=== PATIENT | female | born 1995 | race Asian ===

== ENCOUNTER 2017-07-03 22:17 | Observation (INO) | payer SELFPAY ==
[~2017-07-03] VITALS: Ht 160 cm; Wt 47.1 kg
[2017-07-03] MEDS ORDERED: SODIUM CHLORIDE 0.9% 1000ML 1,000 ML IV STA (22:51)
[2017-07-03 23:13] LABS: BASO % 0.1 %; BASO ABS # 0.01 K/uL (0-0.2); HEMATOCRIT 42.2 % (37-47); HEMOGLOBIN 14.5 g/dL (12.0-16.0); IG# 0.06 K/uL (0.00-0.02); LYMPH % 5.9 %; LYMPH ABS # 0.59 K/uL (1.2-3.4); MEAN CELL VOLUME 91.1 fL (80-100); MEAN CORPUSCULAR HEMOGLOBIN 31.3 pg (25-34); MEAN CORPUSCULAR HGB CONC 34.4 g/dl (32-36); MEAN PLATELET VOLUME 9.2 fL (7.4-10.4); MONO % 2.1 %; MONO ABS # 0.21 K/uL (0.11-0.59); NEUT % 91.3 %; NEUT ABS # 9.18 K/uL (1.4-6.5); PLATELET COUNT 270 K/uL (130-400); RED CELL DISTRIBUTION WIDTH CV 12.2 % (11.5-14.5); RED CELL DISTRIBUTION WIDTH SD 40.8 fL (36.4-46.3); WHITE BLOOD COUNT 10.05 K/uL (4.8-10.8)
[2017-07-03 23:25] LABS: PTT PATIENT 25.5 SECONDS (21.0-31.0)
[2017-07-03 23:52] LABS: ALBUMIN 4.3 gm/dl (3.4-5.0); CREATININE 1.13 mg/dl (0.60-1.20); POTASSIUM 3.9 mmol/L (3.5-5.1)
[2017-07-04] VITALS (9 sets, daily range): BP systolic 94–139; BP diastolic 59–94; PULSE 76–118; TEMP 36.8–37.2; O2SAT 93–99; Ht 160 cm; Wt 47.1 kg
[2017-07-04] MEDS ORDERED: SODIUM CHLORIDE 0.9% 1000ML 1,000 ML IV STA (00:02)
[2017-07-04 00:03] LABS: TOTAL PROTEIN 7.9 gm/dl (6.4-8.2)
[2017-07-04] MEDS ORDERED: SERT1TAB72 PO ×2 (00:56)
[2017-07-04] MEDS ORDERED: DROS1TAB24 PO (00:56)
--- NOTE | 2017-07-04 01:09 | EMERGENCY ROOM VISIT NOTE ---
History Report prepared by Kaycee: Jhony Britton Under the Supervision of: Dr. Jacky Rudolph M.D. First contact with patient: 22:25 Chief Complaint: OVERDOSE (INTENTIONAL) Stated Complaint: OVERDOSE History of Present Illness The patient is a 21 year old female who presents to the Emergency Room with complaints of intentional overdose occurring around 1800 tonight. The patient states that she took 30 25mg tablets of [employer] brand Sleep-Aid, and afterwards she vomited. She states that she did it because she was sad, and she just wanted to sleep, though she states that she was not trying to hurt herself. She states that she was sad about "the Instagram pictures of Radha Donis with her arms so buff". The patient states that she did not take any other medications, and she did not use any alcohol or other drugs. She has a history of depression, and she has been on Zoloft for the past month, and before that she used to take Prozac. She has never tried to hurt herself like this before, and she states that she sees a therapist and psychiatrist. The patient denies any other medical problems. The patient denies any headache, chest pain, shortness of breath, nausea, and palpitations, and she just states that her mouth is dry. She denies any chance of . History is limited secondary to poor cooperation. According to the police the patient told him that she took the pills because she was "suicidal." Source of History: patient History Limited By: poor cooperation Onset: 1800 Position: other (global) Quality: other (overdose) Timing: other (sudden) Review of Systems HPI is limited secondary to poor cooperation Past Medical & Surgical Medical Problems: (1) Depression Social History Marital Status: single Occupation Status: [employer] student Current/Historical Medications Scheduled Drospirenone-Ethinyl Estradiol (Patti), 1 TAB PO DAILY Sertraline Hcl (Zoloft), 25 MG PO DAILY Allergies Coded Allergies: No Known Allergies (Unverified , 07/04/17) Physical Exam Vital Signs Date Time Temp Pulse Resp B/P (MAP) Pulse Ox O2 Delivery O2 Flow Rate FiO2 07/04/17 00:46 125 16 128/89 100 Room Air 07/03/17 23:54 130 16 114/79 96 Room Air 07/03/17 23:20 122 16 133/97 97 Room Air 07/03/17 22:51 137 17 98 Room Air 07/03/17 22:31 146 07/03/17 22:29 98 Room Air 07/03/17 22:27 37.1 152 133/84 98 Room Air Physical Exam Constitutional: Vital signs reviewed. Eyes: Pupils are equal round reactive to light. Conjunctiva are noninjected. ENT: Pharynx is clear without erythema or exudate. Mucous membranes are dry. Neck supple without meningeal signs. Respiratory: Clear to auscultation bilaterally. Breath sounds are equal bilaterally. Cardiovascular: Tachycardic rate at 147 and normal rhythm. No rubs or gallops. GI: Soft, nondistended and nontender. Bowel sounds are present. Musculoskeletal: No lacerations to the wrists. No peripheral edema. Integumentary: No cyanosis. Neurological: The patient is awake and alert. No focal deficits. Psychiatric: Flat affect and uncooperative. Medical Decision & Procedures Laboratory Results 07/03/17 16:02 Red Blood Count 4.63, Mean Corpuscular Volume 91.1, Mean Corpuscular Hemoglobin 31.3, Mean Corpuscular Hemoglobin Concent 34.4, Mean Platelet Volume 9.2, Neutrophils (%) (Auto) 91.3, Lymphocytes (%) (Auto) 5.9, Monocytes (%) (Auto) 2.1, Eosinophils (%) (Auto) 0.0, Basophils (%) (Auto) 0.1, Neutrophils # (Auto) 9.18, Lymphocytes # (Auto) 0.59, Monocytes # (Auto) 0.21, Eosinophils # (Auto) 0.00, Basophils # (Auto) 0.01 07/03/17 22:50 Test 07/03/17 16:02 07/03/17 22:50 07/03/17 23:45 White Blood Count 10.05 K/uL (4.8-10.8) Red Blood Count 4.63 M/uL (4.2-5.4) Hemoglobin 14.5 g/dL (12.0-16.0) Hematocrit 42.2 % (37-47) Mean Corpuscular Volume 91.1 fL (80-100) Mean Corpuscular Hemoglobin 31.3 pg (25-34) Mean Corpuscular Hemoglobin Concent 34.4 g/dl (32-36) Platelet Count 270 K/uL (130-400) Mean Platelet Volume 9.2 fL (7.4-10.4) Neutrophils (%) (Auto) 91.3 % Lymphocytes (%) (Auto) 5.9 % Monocytes (%) (Auto) 2.1 % Eosinophils (%) (Auto) 0.0 % Basophils (%) (Auto) 0.1 % Neutrophils # (Auto) 9.18 K/uL (1.4-6.5) Lymphocytes # (Auto) 0.59 K/uL (1.2-3.4) Monocytes # (Auto) 0.21 K/uL (0.11-0.59) Eosinophils # (Auto) 0.00 K/uL (0-0.5) Basophils # (Auto) 0.01 K/uL (0-0.2) RDW Standard Deviation 40.8 fL (36.4-46.3) RDW Coefficient of Variation 12.2 % (11.5-14.5) Immature Granulocyte % (Auto) 0.6 % Immature Granulocyte # (Auto) 0.06 K/uL (0.00-0.02) Prothrombin Time 10.3 SECONDS (9.0-12.0) Prothromb Time International Ratio 1.0 (0.9-1.1) Activated Partial Thromboplast Time 25.5 SECONDS (21.0-31.0) Partial Thromboplastin Ratio 1.0 Anion Gap 13.0 mmol/L (3-11) Est Creatinine Clear Calc Drug Dose 58.1 ml/min Estimated GFR () 81.6 Estimated GFR (Non- 70.4 BUN/Creatinine Ratio 6.7 (10-20) Calcium Level 8.0 mg/dl (8.5-10.1) Total Bilirubin 0.5 mg/dl (0.2-1) Direct Bilirubin 0.1 mg/dl (0-0.2) Aspartate Amino Transf (AST/SGOT) 11 U/L (15-37) Alanine Aminotransferase (ALT/SGPT) 14 U/L (12-78) Alkaline Phosphatase 65 U/L (45-117) Total Protein 7.9 gm/dl (6.4-8.2) Albumin 4.3 gm/dl (3.4-5.0) Thyroid Stimulating Hormone (TSH) 2.550 uIu/ml (0.300-4.500) Free Thyroxine 1.20 ng/dl (0.80-1.60) Human Chorionic Gonadotropin, Qual NEG (NEG) Salicylates Level < 1.7 mg/dl (2.8-20) Acetaminophen Level < 2 ug/ml (10-30) Ethyl Alcohol mg/dL < 3.0 mg/dl (0-3) Urine Color YELLOW Urine Appearance TURBID (CLEAR) Urine pH 8.0 (4.5-7.5) Urine Specific [place] 1.018 (1.000-1.030) Urine Protein NEG (NEG) Urine Glucose (UA) NEG (NEG) Urine Ketones 1+ (NEG) Urine Occult Blood 1+ (NEG) Urine Nitrite NEG (NEG) Urine Bilirubin NEG (NEG) Urine Urobilinogen NEG (NEG) Urine Leukocyte Esterase SMALL (NEG) Urine WBC (Auto) 5-10 /hpf (0-5) Urine RBC (Auto) 0-4 /hpf (0-4) Urine Hyaline Casts (Auto) 1-5 /lpf (0-5) Urine Epithelial Cells (Auto) >30 /lpf (0-5) Urine Bacteria (Auto) NEG (NEG) Urine Yeast (Auto) (NONE PRSENT) Urine Test NEG (NEG) Urine Opiates Screen NEG (NEG) Urine Methadone, Qualitative NEG (NEG) Urine Barbiturates NEG (NEG) Urine Phencyclidine (PCP) Level NEG (NEG) Ur Amphetamine/Methamphetamine NEG (NEG) MDMA (Ecstasy) Screen NEG (NEG) Urine Benzodiazepines Screen NEG (NEG) Urine Cocaine Metabolite NEG (NEG) Urine Marijuana (THC) NEG (NEG) Laboratory results as reviewed by me. Medications Administered Medications (Trade) Dose Ordered Sig/Ge Route Start Time Stop Time Status Last Admin Dose Admin Sodium Chloride 1,000 ml @ 999 mls/hr Q1H1M STAT IV 07/03/17 22:51 07/03/17 23:51 DC 07/03/17 22:51 999 MLS/HR Sodium Chloride 1,000 ml @ 999 mls/hr Q1H1M STAT IV 07/04/17 00:02 07/04/17 01:02 07/04/17 00:02 999 MLS/HR ECG Per My Interpretation Indication: other (overdose) Rate (beats per minute): 132 Rhythm: sinus tachycardia Findings: no ectopy, other (QRS is 70ms. R [place] is 85) Change: REPEAT EKG: Sinus Tachycardia at 127bpm. QRS is 66ms. No ectopy. ED Course 5: The patient was evaluated in room A10. A complete history and physical exam was performed. 2250: I talked with Poison Control, and they recommended symptomatic care and watch for sedation and tachycardia. They also recommended IV fluids. 2251: Sodium Chloride 1000 ml @ 999 mls/hr IV 2353: I reevaluated the patient, and she was still tachycardic with a heart rate of 130 and light headed. 0002: Sodium Chloride 1000 ml @ 999 mls/hr IV 0003: I reassessed her, and she was still tachycardic. She answers questions appropriately, but she has some hesitancy. I discussed the patient's case with Dr. Bang - [facility], and he is going to evaluate the patient for further management. 0010: I Reevaluated the patient, and she was alert and oriented x4. I discussed plans for admission for her. Medical Decision This is a 21-year-old female who presents with intentional drug overdose and tachycardia. Differential diagnosis includes suicide attempt, mood disorder, anticholinergic toxidrome, electrolyte abnormality, polysubstance overdose. I did perform a limited focused review of portions of the patient's old chart on the electronic medical record. The patient has had no prior visits. I did evaluate the patient as noted above. I did obtain history from the patient. She is not fully cooperative and gives glib answers. She does not appear confused. She did take 25 mg tablets 30 of [employer] brand Sleep-Aid which has diphenhydramine. According to the juvenile justice officer who filled out at [phone] petition the patient told her that she was suicidal. IV access was established. The patient was placed on a continuous vehicle monitor technician. I did order and personally review the patient's 12-lead EKG and chest x-ray as described above. The patient is very tachycardic. She does not have any widening of her QRS. I did order and review the patient's blood work as noted in the electronic medical record. Urine drug screen is negative. UA is equivocal. A urine culture was sent. I did reassess the patient several times. She remains tachycardic. She remains alert and oriented 4. I did discuss case with the Poison Control Center. The patient was given 2 L of normal saline IV. Her heart rate did improve somewhat. I did recommend hospitalization for medical clearance and then psychiatric evaluation. I did discuss case with the hospitalist and protective services case worker. Medication Reconcilliation Current Medication List: was personally reviewed by me Blood Pressure Screening Patient's blood pressure: Elevated blood pressure Blood pressure disposition: Elevated BP felt to be situational Consults Time Called: 0002 Consulting Physician: Dr. Bang Returned Call: 0003 I discussed the patient's case with Dr. Bang - [facility], and he is going to evaluate the patient for further management. Impression Primary Impression: Intentional drug overdose Additional Impression: Suicide attempt Scribe Attestation The scribe's documentation has been prepared under my direct and personally reviewed by me in its entirety. I confirm that the note above accurately reflects all work, treatment, procedures, and medical decision making performed by me. Departure Information Dispostion Being Evaluated By Hospitalist Referrals No Doctor, Assigned (PCP) Patient Instructions My [facility] Problem Qualifiers Primary Impression: Intentional drug overdose Encounter type: initial encounter Qualified Codes: T50.902A - Poisoning by unspecified drugs, medicaments and biological substances, intentional self-harm , initial encounter
[2017-07-04] MEDS ORDERED: ONDANSETRON INJ 2 MG/ML 2 ML VIAL IV PRN (02:15)
[2017-07-04] MEDS ORDERED: ACETAMINOPHEN 325 MG TAB PO PRN (02:15)
--- NOTE | 2017-07-04 02:25 | History and Physical ---
History & Physical Date & Time of Service: Jul 04, 2017 at 02:14 Chief Complaint: Overdose Primary Care Physician: No Doctor, Assigned History of Present Illness Source: patient Patient is a 21 year old female with a history of depression that presents with AMS. The patient took 25-30 benadryl this evening and is unable to provide an accurate description of events or reason behind taking the pills. She states that she felt like she wanted to go to sleep so took the benadryl. She denies any suicidal ideations or attempt to cause hard to herself. The patient does not have clear thoughts at this time and cannot follow a train of thought. She denies any chest pain, headache, shortness of breath, abdominal pain, nausea, vomiting, fever, chills, sweats, or any other acute complaints. Family History Noncontributory Social History Smoking Status: Never Smoker Smokeless Tobacco Use: No Alcohol Use: none Drug Use: none Marital Status: single Occupational Status: [employer] student Immunizations History of Influenza Vaccine: Unknown History of Tetanus Vaccine?: Unknown History of Pneumococcal: Unknown History of Hepatitis B Vaccine: Unknown Multi-Drug Resistant Organisms History of MDRO: No Allergies Coded Allergies: No Known Allergies (Unverified , 07/04/17) Home Medications Scheduled Drospirenone-Ethinyl Estradiol (Patti), 1 TAB PO DAILY Sertraline Hcl (Zoloft), 25 MG PO DAILY Review of Systems Constitutional: No fever, No chills, No sweats, No fatigue Respiratory: No cough, No wheezing, No shortness of breath Cardiovascular: No chest pain, No palpitations Abdomen: No pain, No nausea, No vomiting, No diarrhea, No constipation Neurologic: No weakness, No numbness/tingling, No vertigo Psychiatric: No depression symptoms, No anxiety, No substance abuse Physical Exam Vital Signs Date Time Temp Pulse Resp B/P (MAP) Pulse Ox O2 Delivery O2 Flow Rate FiO2 07/04/17 02:03 87 20 133/69 07/04/17 02:03 115 07/04/17 01:07 112 16 140/90 96 Room Air 07/04/17 00:46 125 16 128/89 100 Room Air 07/03/17 23:54 130 16 114/79 96 Room Air 07/03/17 23:20 122 16 133/97 97 Room Air 07/03/17 22:51 137 17 98 Room Air 07/03/17 22:31 146 07/03/17 22:29 98 Room Air 07/03/17 22:27 37.1 152 133/84 98 Room Air General Appearance: WD/WN, + pertinent finding (fatigued and having staring spells) Head: normocephalic, atraumatic Respiratory/Chest: chest non-tender, lungs clear, normal breath sounds Cardiovascular: regular rate, rhythm, no edema, no gallop Abdomen/GI: normal bowel sounds, non tender, soft Extremities/Musculoskelatal: no calf tenderness, no pedal edema Neurologic/Psych: alert, oriented x 3 Diagnostics Laboratory Results Results Past 24 Hours Test 07/03/17 16:02 07/03/17 22:50 07/03/17 23:45 Range/Units White Blood Count 10.05 4.8-10.8 K/uL Red Blood Count 4.63 4.2-5.4 M/uL Hemoglobin 14.5 12.0-16.0 g/dL Hematocrit 42.2 37-47 % Mean Corpuscular Volume 91.1 80-100 fL Mean Corpuscular Hemoglobin 31.3 25-34 pg Mean Corpuscular Hemoglobin Concent 34.4 32-36 g/dl Platelet Count 270 130-400 K/uL Mean Platelet Volume 9.2 7.4-10.4 fL Neutrophils (%) (Auto) 91.3 % Lymphocytes (%) (Auto) 5.9 % Monocytes (%) (Auto) 2.1 % Eosinophils (%) (Auto) 0.0 % Basophils (%) (Auto) 0.1 % Neutrophils # (Auto) 9.18 1.4-6.5 K/uL Lymphocytes # (Auto) 0.59 1.2-3.4 K/uL Monocytes # (Auto) 0.21 0.11-0.59 K/uL Eosinophils # (Auto) 0.00 0-0.5 K/uL Basophils # (Auto) 0.01 0-0.2 K/uL RDW Standard Deviation 40.8 36.4-46.3 fL RDW Coefficient of Variation 12.2 11.5-14.5 % Immature Granulocyte % (Auto) 0.6 % Immature Granulocyte # (Auto) 0.06 0.00-0.02 K/uL Prothrombin Time 10.3 9.0-12.0 SECONDS Prothromb Time International Ratio 1.0 0.9-1.1 Activated Partial Thromboplast Time 25.5 21.0-31.0 SECONDS Partial Thromboplastin Ratio 1.0 Sodium Level 137 136-145 mmol/L Potassium Level 3.9 3.5-5.1 mmol/L Chloride Level 103 98-107 mmol/L Carbon Dioxide Level 22 21-32 mmol/L Anion Gap 13.0 3-11 mmol/L Blood Urea Nitrogen 8 7-18 mg/dl Creatinine 1.13 0.60-1.20 mg/dl Est Creatinine Clear Calc Drug Dose 58.1 ml/min Estimated GFR () 81.6 Estimated GFR (Non- 70.4 BUN/Creatinine Ratio 6.7 10-20 Random Glucose 113 70-99 mg/dl Calcium Level 8.0 8.5-10.1 mg/dl Total Bilirubin 0.5 0.2-1 mg/dl Direct Bilirubin 0.1 0-0.2 mg/dl Aspartate Amino Transf (AST/SGOT) 11 15-37 U/L Alanine Aminotransferase (ALT/SGPT) 14 12-78 U/L Alkaline Phosphatase 65 45-117 U/L Total Protein 7.9 6.4-8.2 gm/dl Albumin 4.3 3.4-5.0 gm/dl Thyroid Stimulating Hormone (TSH) 2.550 0.300-4.500 uIu/ml Free Thyroxine 1.20 0.80-1.60 ng/dl Human Chorionic Gonadotropin, Qual NEG NEG Salicylates Level < 1.7 2.8-20 mg/dl Acetaminophen Level < 2 10-30 ug/ml Ethyl Alcohol mg/dL < 3.0 0-3 mg/dl Urine Color YELLOW Urine Appearance TURBID CLEAR Urine pH 8.0 4.5-7.5 Urine Specific [place] 1.018 1.000-1.030 Urine Protein NEG NEG Urine Glucose (UA) NEG NEG Urine Ketones 1+ NEG Urine Occult Blood 1+ NEG Urine Nitrite NEG NEG Urine Bilirubin NEG NEG Urine Urobilinogen NEG NEG Urine Leukocyte Esterase SMALL NEG Urine WBC (Auto) 5-10 0-5 /hpf Urine RBC (Auto) 0-4 0-4 /hpf Urine Hyaline Casts (Auto) 1-5 0-5 /lpf Urine Epithelial Cells (Auto) >30 0-5 /lpf Urine Bacteria (Auto) NEG NEG Urine Yeast (Auto) NONE PRSENT Urine Test NEG NEG Urine Opiates Screen NEG NEG Urine Methadone, Qualitative NEG NEG Urine Barbiturates NEG NEG Urine Phencyclidine (PCP) Level NEG NEG Ur Amphetamine/Methamphetamine NEG NEG MDMA (Ecstasy) Screen NEG NEG Urine Benzodiazepines Screen NEG NEG Urine Cocaine Metabolite NEG NEG Urine Marijuana (THC) NEG NEG Microbiology Results 07/03/17 Urine Culture, Received Pending Impression Assessment and Plan Intentional Overdose - Patient took 25-30 Benadryl pills - QTc 444 - Admit to Telemetry - IV NS @ 150 mls/hr - Normal Diet - Psych Consult Depression - Hold Zoloft DVT - SCDs Code Status - Full Resuscitation Attending addendum: I have physically seen this patient, have supervised the medical residents activities, and agree with the H&P unless as otherwise noted. Assessment and Plan: Intentional drug overdose with Benadryl/depression/sinus tachycardia/dehydration -- Admit to the telemetry unit. Normal saline at 150 mils per hour. Continue Zoloft Consult psychiatry. Level of Care Telemetry Advanced Directives Existing Advance Directive: No Existing Living Will: No Existing Power of Floor Runner: No Resuscitation Status FULL RESUSCITATION VTE Prophylaxis VTE Risk Assessment Done? Y/N: Yes Risk Level: Low Given or contraindicated: SCD's Resident Tracking Resident Involvement: Resident Care Provided Care Provided: Adult Hospital Medicine
[2017-07-04] MEDS: SODIUM CHLORIDE 0.9% 1000ML 1,000 ML IV SCH ×4 (03:24→23:02)
[2017-07-04] MEDS ORDERED: IV FLUIDS COMPLETED PRN (04:15)
[2017-07-04] MEDS ORDERED: INFLUENZA ADMINISTRATION CHARGE ONE (05:15)
[2017-07-04] MEDS ORDERED: INFLUENZA VIRUS QUAD VACCINE 0.5 ML SYR IM. ONE (05:15)
[2017-07-04] MEDS: SERTRALINE HCL 50 MG TAB PO SCH (09:33)
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
[2017-07-05 05:10] VITALS: BP 98/65; PULSE 63; TEMP 36.6; O2SAT 99
[2017-07-05] MEDS: SODIUM CHLORIDE 0.9% 1000ML 1,000 ML IV SCH (05:37)
[2017-07-05 06:43] LABS: ALBUMIN 3.4 gm/dl (3.4-5.0); ALKALINE PHOSPHATASE 50 U/L (45-117); ALT/SGPT 13 U/L (12-78); AST/SGOT 15 U/L (15-37); BLOOD UREA NITROGEN 6 mg/dl (7-18); CALCIUM 8.3 mg/dl (8.5-10.1); CARBON DIOXIDE 26 mmol/L (21-32); CREATININE 0.67 mg/dl (0.60-1.20); GLUCOSE 79 mg/dl (70-99); POTASSIUM 3.9 mmol/L (3.5-5.1); SODIUM 139 mmol/L (136-145); TOTAL PROTEIN 6.3 gm/dl (6.4-8.2)
[2017-07-05 07:09] VITALS: BP 94/57; PULSE 68; TEMP 36.9; O2SAT 96
[2017-07-05] MEDS: SERTRALINE HCL 50 MG TAB PO SCH (08:11)
--- NOTE | 2017-07-05 11:00 | Discharge Instructions ---
Discharge Instructions Date of Service Jul 05, 2017. Admission Reason for Admission: Intentional Drug Overdose Discharge Discharge Diagnosis / Problem: depression and risk factors for suicide Discharge Goals Goal(s): Decrease discomfort, Improve function, Increase independence, Improve disease control, Improve nutritional status, Learn about illness, Diagnostic testing, Therapeutic intervention, Prevent Disease Progression, Specific goals Activity Recommendations Activity Limitations: resume your previous activity . Instructions / Follow-Up Instructions / Follow-Up you have depression you have overdose of Benadryl pills - you need to follow up with your primary care physician in 1 week, - take medication as instructed, never overdose or any misuse, or take with alcohol, because misuse of medicine may cause organ damage or , call your primary care physician if have questions of medicaitons. - call your primary care physician OR go to local emergency room if has any fever/chill, chest pain, shortness of breathing, nausea/vomiting/abdominal pain , facial droop/slurry speech/local weakness, or if has any questions. - fall precaution - diet as instructed, encourage oral intake, such as water and food, - you need to follow up with your subspecialist , such as psychiatry Current Hospital Diet Patient's current hospital diet: Regular Diet Discharge Diet Recommended Diet: Regular Diet Pending Studies Studies pending at discharge: no Medical Emergencies . Who to Call and When: Medical Emergencies: If at any time you feel your situation is an emergency, please call 911 immediately. . Non-Emergent Contact Non-Emergency issues call your: Primary Care Provider, Specialist (psychiatry) . . "Provider Documentation" section prepared by Yobani Lawrence. . VTE Core Measure Inpt VTE Proph given/why not?: SCD's
[2017-07-05 11:01] VITALS: BP 94/57; PULSE 68; TEMP 36.9; O2SAT 96
--- NOTE | 2017-07-05 14:59 | Discharge Summary ---
Discharge Summary Date of Service Jul 05, 2017. Discharge Summary Admission Date: Jul 04, 2017 at 02:14 Discharge Date: Jul 05, 2017 Discharge Disposition: Acute care mental health Principal Diagnosis: Depression with high risk of suicide Problems/Secondary Diagnoses: Intentional overdose with 25-30 Benadryl pills Immunizations: Have You Had Influenza Vaccine: Unknown History of Tetanus Vaccine?: Unknown History of Pneumococcal: Unknown History of Hepatitis B Vaccine: Unknown Procedures: No Consultations: Psychiatry Medication Reconciliation Continued Medications: Drospirenone-Ethinyl Estradiol (Patti) 1 Tab Tab 1 TAB PO DAILY for 28 Days, #28 TAB 11 Refills Sertraline Hcl (Zoloft) 25 Mg Tab 25 MG PO DAILY, TAB Discharge Exam Patient doing well, report has no appetite, eating poorly, Review of Systems: Constitutional: + fatigue, No fever, No chills, No sweats, No weight loss, No weakness, No problem reported Eyes: No worsening of vision, No eye pain, No redness, No discharge, No diplopia, No problem reported ENT: No hearing loss, No unusual epistaxis, No nasal symptoms, No sore throat, No tinnitus, No dental problems, No trouble swallowing, No problem reported Respiratory: No cough, No sputum, No wheezing, No shortness of breath, No dyspnea on exertion, No dyspnea at rest, No hemoptysis, No problem reported Cardiovascular: No chest pain, No orthopnea, No PND, No edema, No claudication, No palpitations, No problem reported Abdomen: No pain, No nausea, No vomiting, No diarrhea, No constipation, No GI bleeding, No problem reported Musculoskeletal: No joint pain, No muscle pain, No swelling, No calf pain, No problem reported Genitourinary - Female: No dysuria, No urinary frequency, No urinary urgency , No urinary incontinence, No urinary retention, No hematuria, No dysmenorrhea, No menorrhagia, No metrorrhagia, No rash, No vaginal bleeding, No vaginal discharge, No vaginal itching, No vulvodynia, No , No problem reported Neurologic: No memory loss, No paralysis, No weakness, No numbness/tingling , No vertigo, No balance problems, No problem reported Psychiatric: No depression symptoms Endocrine: No fatigue, No excessive thirst, No excessive urination, No problem reported Integumentary: No rash, No itch, No new/changing skin lesions, No color change, No bleeding, No problem reported Physical Exam: General Appearance: WD/WN, no apparent distress, + thin, + pertinent finding (Smiling during a conversation) Eyes: normal inspection, PERRL, EOMI ENT: normal ENT inspection, hearing grossly normal, TMs normal, pharynx normal Neck: supple, no adenopathy, thyroid normal, no JVD Respiratory/Chest: chest non-tender, lungs clear, normal breath sounds, no respiratory distress, no accessory muscle use Cardiovascular: regular rate, rhythm, no edema, no gallop, no JVD, no murmur Abdomen / GI: normal bowel sounds, non tender, soft, no organomegaly, no pulsatile mass Extremities: normal inspection, no calf tenderness, normal capillary refill , no pedal edema 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 Report history of 201 voluntary admission several years ago, denies any suicidal ideations or attempt to cause hard to herself. Intentional overdose with 25-30 Benadryl pills, possible suicidal attempt with hx of depression 201 voluntary admission, has been on IV fluids because poor oral intake, behavior health saw her, today patient is medically cleared, her lab is stable, no obvious problem in the kidney, liver, and heart , injuries Depression, generalized anxiety: Continue Zoloft 25 mg daily ... Psychiatry evaluation patient again, recommend 2011 inpatient psych treatment, I agreed Instructions / Follow-Up you have depression you have overdose of Benadryl pills - you need to follow up with your primary care physician in 1 week, - take medication as instructed, never overdose or any misuse, or take with alcohol, because misuse of medicine may cause organ damage or , call your primary care physician if have questions of medicaitons. - call your primary care physician OR go to local emergency room if has any fever/chill, chest pain, shortness of breathing, nausea/vomiting/abdominal pain , facial droop/slurry speech/local weakness, or if has any questions. - fall precaution - diet as instructed, encourage oral intake, such as water and food, - you need to follow up with your subspecialist , such as psychiatry Total Time Spent: Greater than 30 minutes This includes examination of the patient, discharge planning, medication reconciliation, and communication with other providers. Discharge Instructions Please refer to the electronic Patient Visit Report (Discharge Instructions) for additional information. Additional Copies To Jackelyn Gaffney MD; [facility]
== END 2017-07-05 11:07 ==
LOC: C.EDA 22:19 → C.MED 07-04 02:14 → ENRESERV 07-04 02:31
PROVIDERS: ADMIT Student in an Organized Health Care Education/Training Program; ATTEND Hospitalist
DX: T45.0X2A Poisoning by antiallergic and antiemetic drugs, intentional self-harm, initial encounter (principal); F32.9 Major depressive disorder, single episode, unspecified; Z79.3 Long term (current) use of hormonal contraceptives

== ENCOUNTER 2017-07-05 10:58 | Inpatient (IN) | payer SELFPAY ==
[~2017-07-05] VITALS: Ht 157.5 cm; Wt 47.1 kg
[~2017-07-05 10:58] MED LIST: DROS1TAB24 PO; SERT1TAB72 PO
[2017-07-05] MEDS ORDERED: hydrOXYzine HCL 25 MG TAB PO PRN ×2 (11:15)
[2017-07-05] MEDS ORDERED: ACETAMINOPHEN 325 MG TAB PO PRN (11:15)
[2017-07-05] MEDS ORDERED: MAGNESIUM HYDROXIDE SUSP 30 ML UDC PO PRN (11:15)
[2017-07-05] MEDS ORDERED: SODIUM CHLORIDE 0.65% NA SOLN 45 ML (OCEAN) PRN (11:15)
[2017-07-05] MEDS ORDERED: ALUMINUM/MAGNESIUM SUSP 30 ML UDC PO PRN (11:15)
[2017-07-05] MEDS ORDERED: BISMUTH SUBSALICYLATE PER ML OMNICELL CHARGE PO PRN (11:15)
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
[2017-07-05] MEDS ORDERED: SERTRALINE HCL 50 MG TAB PO ONE (12:00)
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
[2017-07-05 12:29] VITALS: BP 108/76; PULSE 92; TEMP 36.9; Ht 157.5 cm; Wt 47.1 kg
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
[2017-07-06 06:31] VITALS: BP_SYST 100; BP_SYST 99; BP_DIAS 65; BP_DIAS 68; PULSE 73; PULSE 87; TEMP 36.6
[2017-07-06] MEDS ORDERED: SERTRALINE HCL 50 MG TAB PO SCH (09:00)
[2017-07-06] MEDS: SERTRALINE HCL 50 MG TAB PO SCH (09:09)
--- NOTE | 2017-07-06 11:51 | Psychiatric Progress Notes ---
Progress Note Date of Service Jul 06, 2017. Interval History Jackelyn Torres is a 21-year-old female [facility] student from [place] who has a history of depression who was admitted to our unit on Jul 05, 2017 at 10:58 for depression and an intentional overdose. She initially presented to the emergency room 07/03/2017 with police after they responded to a safety check, found her altered, and she admitted to overdosing on 30 tablets of over-the- counter sleep medication. She was initially admitted to the hospitalist service , receive supportive treatment, and today was medically cleared and admitted to the behavioral health unit voluntarily. Chief Complaint "Better since I talked to my friend ". Subjective Patient was seen & assessed interval progress reviewed with Treatment Team. Staff report her father visited from [place] last evening. A phone meeting is scheduled for today, as he had to return home. She has spent free time in her room yesterday, but today has started to attend groups. She talked about the changes in her life after the accident that killed her mother, and believes her psychiatric issues started then. She also talked about her long distance relationship with her boyfriend, and is hoping that it will continue. She has been on the phone throughout group therapy. On my assessment, the patient states that her mood has improved since talking to her best friend on the phone this morning. She states that her friend told her that she and the patient's boyfriend were very concerned about her, as she told them that she had taken the overdose, and then stopped responding to their text messages. They feared that she was , so called the police. She states that it was reassuring to her to know that her friend and boyfriend care about her so much. She talked more about the precipitant to her overdose, which was an argument with her boyfriend. She says the argument was "just a regular argument, nothing abnormal ," but afterwards she "was overthinking it, thinking that he doesn't care, doesn 't like me." She notes that this is a pattern for her, and that she does not do well when she has disagreements with others. She denies suicidal thoughts today, but states that she expects they will return again in the future. She thinks that she will not be as likely to act on them, as "now I know my boyfriend and friend really care." She has only attended 1 group since admission, community meeting this morning, and says it was "kind of" helpful. Discussed the concept of safety planning, and encouraged the patient to start working on this, as she continues to hope for rapid discharge. She has a meeting with her father this afternoon by phone, and states he is planning to return to [facility] when she is discharged. Sleep Information Total Hours of Sleep: 6.00 Meal Information Percent of Lunch Consumed: 100 Percent of Dinner Consumed: 100 Mental Status Exam During interview pt is: alert and oriented, cooperative Appearance: appropriately dressed, appropriately groomed, other (facial scarring) Eye contact is: good Motor behavior is: steady gait & station, no abnormal motor movements Speech: normal in rate, rhythm & volume (more productive than previously) Affect: mood congruent, depressed, constricted Mood is: other ("better") Thought process: goal directed Thought content: reality based without delusions Suicidal thought are: denied (but admits to intentional overdose prior to admission) Homicidal thoughts are: denied Hallucinations: denies auditory, denies visual Cognition: memory grossly intact, attention grossly intact, language grossly intact Intelligence estimated to be: average Insight: impaired Judgement: impaired Impression 21 y/o single female [employer] student from [place] who has a history of depression and anxiety and is admitted voluntarily after an intentional overdose on OTC sleep meds (possibly diphenhydramine), which she initially told police was a suicide attempt, but later said was an attempt to sleep. This was triggered by an argument with her boyfriend, the details of which she has been somewhat reluctant to discuss. Her boyfriend and best friend had been communicating with her and were sufficiently concerned for her safety that they contacted police, who went to her dorm and found her altered. There is a 302 petition on her chart from police. She has had depressive and anxiety symptoms for months, is in treatment at [facility], and has had several SSRI trials. Sertraline increased, family meeting with father today, and coordinating with her OP providers. She is transitioning from to the [facility], but will need frequent follow-up after discharge given the severity of her symptoms. She requires inpatient treatment due to the severity of her depression, her intentional overdose and the risk for suicide if discharged prematurely. Plan (1) Intentional overdose of drug in tablet form Still unknown what she overdosed on, initially reported as diphenhydramine, but bottle police brought in was missing only 2 pills. She thinks it was an OTC sleep medication from [employer]; likely an antihistamine. Q 15 min checks for safety. Encourage group attendance and participation. Work on health coping skills and discharge safety plan. Will recommend someone remove medications from her dorm room prior to discharge (has habitually over-used OTC sleep meds to sleep excessively when depressed). 07/06 -Reviewed the concept of the safety plan, and encouraged her to start working on it. -Recommend that father bring in medications from her dorm room so sleep meds can be disposed of. Recommended she not have access to large amounts of pills in order to decrease the risk of impulsive OD. (2) Depression 07/05 - Increase sertraline to 50mg daily for today, and 75mg daily for tomorrow. Was on 50mg daily at home, with some improvement. Tolerating well. -Records from [facility] reviewed. Coordinate care and ensure timely aftercare - is to transition to [facility] Clinic at some point for [facility] treatment. -Facilitate contact with the [employer], as she states she is performing poorly in school. 07/06 - sertraline increased to 75mg daily. Family meeting with father today. -Coordinate with [facility] to ensure adequate f/u - will need med management [facility], as no psychiatric appointment scheduled there yet and she has to complete testing and intake first. (3) Anxiety Symptoms of AMERICA, panic and social anxiety. Increase SSRI as above, and continue therapy. (4) Borderline Personality Traits Per therapist, has some borderline traits. Will continue to educate and encourage ongoing OP therapy. 07/06 - Would likely benefit form both CBT and DBT modalities. 07/05 - Continue home OCP, will need to bring in home supply as nonformulary. Discharge / Aftercare Planning Primary Care Physician: Name: [facility] Psychiatrist: Name: Lena Mendes Therapist: Name: Iraj Gonzales Other: Name of Appointment #1: Tea Hughes, [facility] Date of Appointment #1: Jul 18, 2017 Time of Appointment #1: 4pm Visit Code E&M Code: 89652 Inventory Assets Strengths: Supportive family, willing for treatment, has OP providers Needs: Medication adjustments to better treat her symptoms, safety plan Risk Factors Assessment : No /single/: Yes Higher / Fall in social status: No Health problems: Yes Mental Health Diagnoses: Yes Substance use disorders: No Previous attempt: No Family history of suicide: No Previous psychiatric stay: Yes Hopelessness: No Smoker: No Protective Factors Assessment Rastafarian beliefs: No : No Responsible for young children: No Employed: No Stable relationships: Yes Supportive family: Yes Good rapport with provider: Yes Data Vital Signs Last 24 Hrs: Date Time Temp Pulse Resp B/P (MAP) Pulse Ox O2 Delivery O2 Flow Rate FiO2 07/06/17 06:31 36.6 73 16 100/65 87 99/68 07/05/17 12:29 36.9 92 16 108/76 Meds Administered Last 24 Hrs: Meds Administered (Past 24Hrs) Medications (Trade) Dose Ordered Sig/Ge Route Start Time Stop Time Status Last Admin Dose Admin Sertraline HCl (Zoloft Tab) 25 mg TODAY@1200 ONCE PO 07/05/17 12:00 07/05/17 12:01 DC 07/05/17 11:57 25 MG Sertraline HCl (Zoloft Tab) 75 mg QAM PO 07/06/17 09:00 08/05/17 08:59 07/06/17 09:09 75 MG Problem Qualifiers (1) Depression: Depression Type: major depressive disorder Major depression recurrence: recurrent Major depression episode severity: severe Psychotic features: without psychotic features
--- NOTE | 2017-07-06 14:58 | Medical Student: BHU Only ---
Psychiatric Progress Note Date of Service: Jul 06, 2017. SUBJECTIVE: Jackelyn is a 21-year-old female with past medical history significant for major depressive disorder who was admitted on a 201 voluntary commitment to the [facility] on 07/05/17 following an intentional overdose of Benadryl. On 07/03, she was upset following an argument with a boyfriend and took 25-30 pills with "the intention to sleep." Today, Jackelyn appears to be doing much better. She has been able to eat all her meals and slept 7-8 hours last night, although she had difficulty falling asleep initially. She attending community meeting this morning but otherwise has not been able to attend groups because her father visited last night, and she was on the phone with her best friend this morning. Yesterday, she was complaining of left sided numbness in her anterior and lateral thigh which temporarily progressed to bilateral numbness. She only has left sided numbness today. She has never had this before. It is persistent and has not worsened since yesterday. She is not having saddle anesthesia, pain, or difficulty voiding/stooling. She is not having suicidal ideations today. She is tolerating her increase of Zoloft. She stated her visit with her dad was "eh." He talks a lot, and she typically tunes him out. She states that although they have a good relationship, his views are different due to culture as he is from [place] and she grew up in the . He does not necessarily understand mental health, but is trying and is supportive of her receiving treatment. She also mentions that since her overdose , her memory has continued to be off, although improving. In general, she is frustrated that her dad does not allow her to think for herself. He believes she is too young to date and is distrusting of her boyfriend. Her paternal grandfather, who emigrated from [place] to [place], is also very distrusting of her boyfriend. She thinks some of this may be because her father's remarriage to a woman from [place] which did not end well. Many individuals, including her family, suggest that her boyfriend may be using her to get a Green Card, which is frustrating to hear. Her boyfriend is from [place] and is a major support system from her. He visited her at her family home in the winter of 2015, although her father thought they were just friends at the time. She visited him over the summer, and he came to [facility] the first two weeks this ester. Her father is unaware of this visit. Jackelyn is very happy when he visits and even for the weeks after his departure, as she has many memories to hold on to while they are apart. She does believe an argument with her father in January regarding the possibility of her boyfriend visiting over winter is what triggered her depression again last year. She gets extremely frustrated that her father "does not allow her to think for herself." In addition, school is another stressor for her. She wants to stay at [facility] because she does not like change. She has not thought of strategies to improve her grades. At 1 PM today, we had a family meeting with her father. She states the meeting was "awkward" as she is not comfortable sharing her feelings with her father. She wants to continue school and was encouraged to create a safety plan in order to soothe herself in times of stress and find strategies to reach out to her father. Father is in [place] and would like reassurance on a daily basis that she is okay to continue school. Jackelyn agreed to text her father daily and rate her mood on a scale so she can start learning to open up to him. When asked about the incidents from Tuesday, she said she spoke to her friend about what happened. She took 25-30 pills around 11 AM and told her friend she was taking pills. Her friend reached out to her boyfriend, and he encouraged her to call the police. When asked about why she took so many pills, she stated she got in an argument with her boyfriend on Tuesday and Tuesday. Her boyfriend often makes insensitive jokes and called her "bipolar and schizophrenic" which made her feel like he did not care. ROS: Patient endorses numbness of her left anterior and lateral thigh; otherwise non- contributory MSE: Appearance is that of an appropriately dressed female who appears her stated age. The patient is generally cooperative with the interview. Eye contact is appropriate. Motor behavior is normal. Speech: Soft volume, normal rate, normal tone. Affect: Somewhat flat. Mood: Mildly depressed. Thought process: Goal directed Thought content: Denies SI, HI, hallucinations, paranoias Perception: Denies illusions, hallucinations Insight is estimated to be appropriate. Judgment is estimated to be appropriate. ASSESSMENT: 1. Intentional Overdose of Benadryl 2. Major Depressive Disorder Patient meets DSM-5 criteria for MDD including depressed mood, anhedonia, hypersomnia, loss of energy, and suicidal ideations. PHQ-9 score of 12. 3. Generalized Anxiety Disorder Also meets DSM-5 criteria for AMERICA including excessive worry, fatigue, irritability, loss of concentration. 4. Borderline Personality Traits Traits seen include unstable self-image, mood swings, fear of rejection, anger, splitting. PLAN: 1. Intentional Overdose of Benadryl a. q15 minute safety checks b. Patient encouraged to create a safety plan during family meeting. It will also be suggested that her father remove any OTC medication from her dorm room that could be abused. 2. MDD a. Zoloft increased from 50 mg to 75 mg. Patient tolerated increase well. b. Patient is being encouraged to attend groups and participate in sessions. Once being discharged, she will follow-up in [facility]'s psych clinic. She was previously seen at [facility]. 3. AMERICA a. Zoloft was increased to 75 mg today. 4. Borderline Personality Traits a. Patient will follow-up with [facility] psych clinic upon discharge. DBT will be useful to combat BPD.
[2017-07-07 07:10] VITALS: BP_SYST 103; BP_SYST 109; BP_DIAS 70; BP_DIAS 76; PULSE 105; PULSE 78; TEMP 36.3
[2017-07-07] MEDS: SERTRALINE HCL 50 MG TAB PO SCH (10:03)
--- NOTE | 2017-07-07 11:39 | Psychiatric Progress Notes ---
Progress Note Date of Service Jul 07, 2017. 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 She initially presented to the emergency room 07/03/2017 with police after they responded to a safety check, found her altered, and she admitted to overdosing on 30 tablets of over-the- counter sleep medication. She was initially admitted to the hospitalist service , receive supportive treatment, and today was medically cleared and admitted to the behavioral health unit voluntarily. Chief Complaint "I'm feeling pretty good". Subjective Patient was seen & assessed interval progress reviewed with Nursing. Staff reports the patient has had a phone meeting with her father during which they discussed his desire for better communication between the two of them. Pt was seen today to determine progress since admission. Pt states she is feeling a little better, but continues to feel groggy - "like the sleeping pills are still in my system." Pt has noticed some improvement in her mood since admission, but is uncertain about increasing her dose of sertraline at this time. Meeting with patient's father was reported by patient to be "ok", she states he was encouraging her to communicate more, but she states she feels that this might provoke more lectures, which is bothersome to her. Pt is looking forward to Spring Break as an opportunity to focus on her health and get support from friends back home. 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 Pt reports that her workload this semester in school is manageable compared to last and she feels as though she has a good balance of schoolwork and downtime. Will continue to work with patient to evaluate options to add structure to her days as she reports motivation was a concern for her prior to admission. Pt denies SI at this encounter. She states she is not sure that her actions were a suicide attempt as "if I really wanted to , I would have taken the whole bottle." She is not able to fully evaluate the severity of her actions at this time. She denies concerns or needs at this time. Review of Systems Psych: denies symptoms other than stated above Constitutional: denied Cardiovascular: denied GI: denied Neurologic: reports an area of "numbness" along her lateral left thigh, not interfering with ambulation or function Remainder of 10 body systems also reviewed and denied other than noted above. Sleep Information Total Hours of Sleep: 5.50 Meal Information Percent of Lunch Consumed: 100 Percent of Dinner Consumed: 100 Mental Status Exam During interview pt is: alert and oriented, cooperative Appearance: appropriately dressed (in t-shirt and scrub pants), appropriately groomed, other (facial scarring) Eye contact is: fair Motor behavior is: steady gait & station, no abnormal motor movements Speech: normal in rate, rhythm & volume (quiet and reserved during conversation ) Affect: mood congruent, depressed, other (reserved) Mood is: depressed, other ("pretty good") Thought process: goal directed, clear, coherent Thought content: reality based without delusions Suicidal thought are: denied (but admits to intentional overdose of Benadryl prior to admission) Homicidal thoughts are: denied Hallucinations: denies auditory, denies visual Cognition: memory grossly intact, attention grossly intact, language grossly intact Intelligence estimated to be: average Insight: impaired Judgement: impaired Impression Pt reports some improvement in mood over the last day. She feels as though her increased dose of sertraline has been effective and is unsure about further increases at this time. Pt states she has been in treatment at [facility] and is willing to return there until she is worked-up fully by [facility] psych clinic. Will continue to focus on aftercare planning and structure for spring. Pt reports she will be returning home with her father during that time. Pt continues to require inpatient mental health treatment as she remains at high risk of self-harm if discharged prematurely. Current plan is to discharge patient to the care of her father so she will remain supervised. Plan (1) Intentional overdose of drug in tablet form Still unknown what she overdosed on, initially reported as diphenhydramine, but bottle police brought in was missing only 2 pills. She thinks it was an OTC sleep medication from [employer]; likely an antihistamine. Q 15 min checks for safety. Encourage group attendance and participation. Work on health coping skills and discharge safety plan. Will recommend someone remove medications from her dorm room prior to discharge (has habitually over-used OTC sleep meds to sleep excessively when depressed). 07/06 -Reviewed the concept of the safety plan, and encouraged her to start working on it. -Recommend that father bring in medications from her dorm room so sleep meds can be disposed of. Recommended she not have access to large amounts of pills in order to decrease the risk of impulsive OD. 07/07 - Patient reports overdose of Benadryl. Should review plan for medication management with father as above. (2) Depression 07/05 - Increase sertraline to 50mg daily for today, and 75mg daily for tomorrow. Was on 50mg daily at home, with some improvement. Tolerating well. -Records from [facility] reviewed. Coordinate care and ensure timely aftercare - is to transition to [facility] at some point for longterm treatment. -Facilitate contact with the [place], as she states she is performing poorly in school. 07/06 - sertraline increased to 75mg daily. Family meeting with father today. -Coordinate with [facility] to ensure adequate f/u - will need med management while transitioning to [facility], as no psychiatric appointment scheduled there yet and she has to complete testing and intake first. 07/07 - Continue sertraline 75mg daily - [facility] follow up in interim for management by [facility]. - Call patient's father to discuss discharge planning in regard to available times for pickup as patient should be discharged to his care. (3) Anxiety Symptoms of AMERICA, panic and social anxiety. Increase SSRI as above, and continue therapy. (4) Borderline Personality Traits Per therapist, has some borderline traits. Will continue to educate and encourage ongoing OP therapy. 07/06 - Would likely benefit form both CBT and DBT modalities. 07/05 - Continue home OCP, will need to bring in home supply as nonformulary. Discharge / Aftercare Planning Primary Care Physician: Name: [facility] Psychiatrist: Name: Lena Mendes [facility] Therapist: Name: Iraj Gonzales [facility] Other: Name of Appointment #1: Tea Hughes, [facility] Date of Appointment #1: Jul 18, 2017 Time of Appointment #1: 4pm Name of Appointment #2: [facility] Student Care and Advocacy Visit Code E&M Code: 22818 Inventory Assets Strengths: Supportive family, willing for treatment, has OP providers Needs: Medication adjustments to better treat her symptoms, safety plan Risk Factors Assessment : No /single/: Yes Higher / Fall in social status: No Health problems: Yes Mental Health Diagnoses: Yes Substance use disorders: No Previous attempt: No Family history of suicide: No Previous psychiatric stay: Yes Hopelessness: No Smoker: No Protective Factors Assessment Mandaeism beliefs: No : No Responsible for young children: No Employed: No Stable relationships: Yes Supportive family: Yes Good rapport with provider: Yes Data Vital Signs Last 24 Hrs: Date Time Temp Pulse Resp B/P (MAP) Pulse Ox O2 Delivery O2 Flow Rate FiO2 07/07/17 07:10 36.3 78 16 103/70 105 109/76 Meds Administered Last 24 Hrs: Meds Administered (Past 24Hrs) Medications (Trade) Dose Ordered Sig/Ge Route Start Time Stop Time Status Last Admin Dose Admin Sertraline HCl (Zoloft Tab) 25 mg TODAY@1200 ONCE PO 07/05/17 12:00 07/05/17 12:01 DC 07/05/17 11:57 25 MG Sertraline HCl (Zoloft Tab) 75 mg QAM PO 07/06/17 09:00 08/05/17 08:59 07/07/17 10:03 75 MG Problem Qualifiers (1) Depression: Depression Type: major depressive disorder Major depression recurrence: recurrent Major depression episode severity: severe Psychotic features: without psychotic features
--- NOTE | 2017-07-07 13:02 | Medical Student: BHU Only ---
Psychiatric Progress Note Date of Service: Jul 07, 2017. SUBJECTIVE: Jackelyn is a 21-year-old female with past medical history significant for major depressive disorder who was admitted on a 201 voluntary commitment to the [facility] on 07/05/17 following an intentional overdose of Benadryl. On 07/03, she was upset following an argument with a boyfriend and took 25-30 pills with "the intention to sleep." Today, Jackelyn appears to be doing much better. She has been able to eat all her meals and slept 7-8 hours last night, although she had difficulty falling asleep again. She continues to feel fatigued following the overdose. She attended one group this morning. Two days ago, she was complaining of left sided numbness in her anterior and lateral thigh which temporarily progressed to bilateral numbness. She only has left sided numbness today. She has never had this before. It is persistent and has not worsened since yesterday. She is not having saddle anesthesia, pain, or difficulty voiding/stooling. She is not having suicidal ideations today. She is tolerating her increase of Zoloft. She rates her mood as 7/10. She is excited because today is Thong Pierce's birthday. She talked to her father and younger brother on the phone last night. She enjoyed talking to her brother specifically as she has not gotten to talk to him during her inpatient stay until then. ROS: Patient endorses numbness of her left anterior and lateral thigh; otherwise non- contributory MSE: Appearance is that of an appropriately dressed female who appears her stated age. The patient is generally cooperative with the interview. Eye contact is appropriate. Motor behavior is normal. Speech: Soft volume, normal rate, normal tone. Affect: Somewhat flat. Mood: Mildly depressed. Thought process: Goal directed Thought content: Denies SI, HI, hallucinations, paranoias Perception: Denies illusions, hallucinations Insight is estimated to be appropriate. Judgment is estimated to be appropriate. ASSESSMENT: 1. Intentional Overdose of Benadryl 2. Major Depressive Disorder Patient meets DSM-5 criteria for MDD including depressed mood, anhedonia, hypersomnia, loss of energy, and suicidal ideations. PHQ-9 score of 12. 3. Generalized Anxiety Disorder Also meets DSM-5 criteria for AMERICA including excessive worry, fatigue, irritability, loss of concentration. 4. Borderline Personality Traits Traits seen include unstable self-image, mood swings, fear of rejection, anger, splitting. PLAN: 1. Intentional Overdose of Benadryl a. q15 minute safety checks b. Patient encouraged to create a safety plan during family meeting. It will also be suggested that her father remove any OTC medication from her dorm room that could be abused. c. Numbness in left thigh could be due to overdose; not worsening or progressing- Continue to monitor. 2. MDD a. Zoloft increased from 50 to 75 mg on 07/06. Tolerated increase well. Continue Zoloft daily. b. Patient is being encouraged to attend groups and participate in sessions. Once being discharged, she should follow-up with [facility] until she is transferred to [facility]'s long-term psych clinic. c. Jackelyn will be discharged to the care of her father. Social work will call her father to arrange a convenient time for pick-up. Discharge will be dependent upon this. 3. AMERICA a. Continue Zoloft. 4. Borderline Personality Traits a. Patient will follow-up with [facility] psych clinic upon discharge. DBT will be useful to combat BPD.
[2017-07-08 06:37] VITALS: BP_SYST 107; BP_SYST 113; BP_DIAS 72; PULSE 108; PULSE 83; TEMP 36.8
[2017-07-08] MEDS: SERTRALINE HCL 50 MG TAB PO SCH (09:44)
--- NOTE | 2017-07-08 11:03 | Medical Student: BHU Only ---
Psychiatric Progress Note Date of Service: Jul 08, 2017. SUBJECTIVE: Jackelyn is a 21-year-old female with past medical history significant for major depressive disorder who was admitted on a 201 voluntary commitment to the [facility] on 07/05/17 following an intentional overdose of Benadryl. On 07/03, she was upset following an argument with a boyfriend and took 25-30 pills with "the intention to sleep." Today, Jackelyn appears to be doing much better. She has been able to eat all her meals and slept 7-8 hours last night. She has been attending groups and participates during them. Three days ago, she was complaining of left sided numbness in her anterior and lateral thigh which temporarily progressed to bilateral numbness. She continues to have left sided numbness today. It is persistent and has not worsened since yesterday. She is not having saddle anesthesia, pain, or difficulty voiding/stooling. She is not having suicidal ideations today. She is tolerating her Zoloft. She rates her mood as 9/10. She had the opportunity to talk to her boyfriend on the phone yesterday which made her very happy. She has not gotten to speak to him since coming to the [facility]. She also talked to her father on the phone which went well. In regards to discharge planning, Jackelyn will be seen at [facility] until she is transitioned to [facility]'s long-term psych clinic. [facility] has not returned the call to schedule this. She was also told to follow-up with her PCP at home regarding her left sided thigh numbness. Discharge is contingent upon father's ability to pick her up. She will go home for one week as [facility] is on spring. ROS: CONSTITUTIONAL: Denied HEENT: Eyes: Denied. Ears, Nose, Throat: Denied. SKIN: Denied. CARDIOVASCULAR: Denied. RESPIRATORY: Denied. GASTROINTESTINAL: Denied. GENITOURINARY: Denied. NEUROLOGICAL: Denied other than left sided anterior and lateral thigh numbness. MUSCULOSKELETAL: Denied. HEMATOLOGIC: Denied. LYMPHATICS: Denied. PSYCHIATRIC: Denied other than what is stated above. PHYSICAL EXAM: Patient was medically cleared prior to admission to [facility] Vitals: T 36.8, P 83-108, RR 14, BP 107-113 systolically, 72 diastolically MEDICATIONS: Zoloft 75 mg tab qAM daily Vistaril 50 mg PRN for insomnia Vistaril 25 mg PRN for anxiety MSE: Appearance is that of an appropriately dressed female who appears her stated age. The patient is generally cooperative with the interview. Eye contact is appropriate. Motor behavior is normal. Speech: Soft volume, normal rate, normal tone. Affect: Flat (brightens up only when she discusses her boyfriend or things she enjoys such as soccer or Thong Stan). Mood: Mildly depressed. Thought process: Goal directed Thought content: Denies SI, HI, hallucinations, paranoias Perception: Denies illusions, hallucinations Insight is estimated to be appropriate. Judgment is estimated to be appropriate. ASSESSMENT: 1. Intentional Overdose of Benadryl 2. Major Depressive Disorder Patient meets DSM-5 criteria for MDD including depressed mood, anhedonia, hypersomnia, loss of energy, and suicidal ideations. PHQ-9 score of 12. 3. Generalized Anxiety Disorder Also meets DSM-5 criteria for AMERICA including excessive worry, fatigue, irritability, loss of concentration. 4. Borderline Personality Traits Traits seen include unstable self-image, mood swings, fear of rejection, anger, splitting. PLAN: 1. Intentional Overdose of Benadryl a. q15 minute safety checks b. Patient encouraged to create a safety plan during family meeting. It is also suggested that her father remove any OTC medication from her dorm room that could be abused prior to her release. c. Numbness in left thigh could be due to overdose; not worsening or progressing- Continue to monitor. Follow-up with PCP after discharge. 2. MDD a. Zoloft increased from 50 to 75 mg on 07/06. Tolerated increase well. Continue Zoloft daily. b. Patient is being encouraged to attend groups and participate in sessions. Once being discharged, she should follow-up with [facility] until she is transferred to [facility]'s long-term psych clinic. Working to schedule appointment with [facility]. c. Jackelyn will be discharged to the care of her father. Social work will call her father to arrange a convenient time for pick-up. Discharge will be dependent upon this. 3. AMERICA a. Continue Zoloft. 4. Borderline Personality Traits a. Patient will follow-up with [facility] psych clinic upon discharge. DBT will be useful to combat BPD.
--- NOTE | 2017-07-08 11:17 | Psych Management Progress Note ---
Psychiatry Miscellaneous Date of Service: Jul 08, 2017. Patient seen, MS assessed. Rates mood as 8/10 and "happy". Encouraged cooperation with care and treatment plan as outlined by allied health prescriber. She is working on cognitive distortions. Father to be picking patient up at discharge as returning to [place] for spring. I participated in medical decision making around her discharge planning.
[2017-07-08] MEDS ORDERED: ZLF50 PO ×2 (12:40)
--- NOTE | 2017-07-08 12:50 | Discharge Instructions ---
Discharge Information Report Includes Report will include the: Discharge Instructions & Summary Admission Admission Date / Time: Jul 05, 2017 at 10:58 Reason for Admission: Major Depression Recurrent Discharge Discharge Diagnosis / Problem: Depression Condition at Discharge: Good Discharge Goals Goal(s): Decrease discomfort, Improve function, Increase independence, Learn about illness, Therapeutic intervention, Prevent Disease Progression Activity Recommendations Activity Limitations: resume your previous activity . Instructions / Follow-Up Instructions / Follow-Up . SPECIAL CARE INSTRUCTIONS: 1. Follow through with your scheduled aftercare appointments. If unable to keep an appointment, please call to reschedule. 2. Take your medication only as prescribed. Medication should not be changed or stopped without the approval of your doctor. In the event of worsening symptoms or concerns about side effects, contact your doctor immediately. 3. Utilize new healthy coping skills, anger management skills, and stress management skills learned during your hospitalization. Journal feelings and process them with a support person. Identify stressors or situations that may result in relapse, deterioration or inappropriate behaviors and develop a plan to deal with those issues. 4. If your coping skills are ineffective and you are in crisis, contact your outpatient providers for direction. If unable to reach your providers, please call the CAN HELP LINE AT or go to the closest Emergency Room. 5. Avoid alcohol and un-prescribed drugs. 6. You have been provided with the Mental Health Advance Directives Pamphlet for your review. AFTERCARE APPOINTMENTS: * Please call your insurance company prior to your scheduled appointment to confirm your aftercare providers are covered. Take your insurance information to your appointments. . Discharge / Aftercare Planning Primary Care Physician: Name: Dr. Clay Date of Appointment: Jul 11, 2017 Time of Appointment: 9:30am Psychiatrist: Name: Lena Mendes [facility] Therapist: Name Of Therapist: Iraj Gonzales [facility] Other: Name of Appointment #1: Tea Hughes, [facility] Date of Appointment #1: Jul 18, 2017 Time of Appointment #1: 4pm Name of Appointment #2: Elizabeth RAMIREZ [facility] . Follow-Up Care Plan for Follow-Up Care: Pt's aftercare was reviewed and updated during his admission to allow for timely followup with psychiatric providers following discharge. Pt will be returning to her current psychiatrist at [facility] until she is able to be seen at [facility] psych clinic for further management. Current Hospital Diet Patient's current hospital diet: Regular Diet Discharge Diet Recommended Diet: Regular Diet Procedures Procedures Performed: No Pending Studies Pending Studies at Discharge: No Medical Emergencies . Who to Call and When: Medical Emergencies: For questions or emergencies related to your hospital stay, please contact the Inpatient Behavioral Health Unit at [phone]. A controls operator molded goods is on-call 29/11 for the Behavioral Health Unit for emergencies At any time you feel your situation is an emergency, you may also call 911 immediately. . Non-Emergent Contact Non-Emergency issues call your: Primary Care Provider, Psychiatrist, Therapist Advance Directives Do You Have an Existing Mental: No Existing Living Will: No Existing Power of Wing Mailer Machine Operator: No Advance Directives Info Given: To Pt/S.O. Advance Directives Reason: Declines as Mental Health Visit. Discharge Summary Admission HPI Per the Admitting provider: Jackelyn is known to me from evaluation yesterday on the consultation service. Per my initial consult note, she presented to the emergency room with [facility] police. They completed a 302 petition, stating that they responded to a safety check at the patient's residence, she stated she was dizzy and slumped onto the floor, and admitted that she had taken 30 tablets of Benadryl around 6 PM. When they asked why she took so many pills, she said "I am suicidal." A bottle of Benadryl was brought into the hospital with her, but only 2 tablets were missing. She then told staff that she had taken a "sleep aid" from [employer] , the exact ingredients of which are still unknown. She refused to tell staff why she was upset, but said she took the pills because she was upset and wanted to sleep. She was tachycardic on admission, and drug screen was negative. At times she is uncooperative with attempts to question her and refuses to speak. On my assessment, she was quite irritable with questioning, stating that she took the overdose to sleep, and denies that she told police officers that she was suicidal. She has used gzse-owz-wogsaem sleep medication in the past to sleep, but typically takes 1-2 pills. She cannot/will not explain why she took 30 tablets, other than to say "I am not stupid enough to think that that would kill me." She admits that she has had suicidal thoughts in the past, and that her plan was to overdose on Benadryl. She is not forthcoming with the events that led to the overdose, stating she was talking to her boyfriend who does not live locally, as well as her best friend, and thinks that they became concerned because "I was not responding, they just assumed I was ." She says "they were worried about me," but will not explain why. She previously told the medical student that she got into an argument with her boyfriend yesterday. 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 She reports lower mood recently, loss of interest, hypersomnia, fatigue, irritability, decreased motivation, poor concentration, and scored a 12 on the PHQ 9. She endorses irritability and excessive worry, panic attacks that occur every few months with tachycardia and hyperventilation for about 30 minutes. She denies symptoms of keren, psychosis, OCD, and PTSD. She was initially diagnosed with depression and anxiety when she was hospitalized in [place] 4 years ago for panic attacks and suicidal thoughts. She was started on fluoxetine, which she took for about 2 years, and then stopped it as she felt better and did not think she needed any more. She was not in any treatment until February 2017, when she started seeing someone at [facility] for medications and the therapist at [facility]. She was initially restarted on fluoxetine, but it was ineffective, so she was switched to citalopram. It was also ineffective, so she was switched to sertraline about a month ago. Prior to that, she had suicidal thoughts with a plan to overdose on Benadryl multiple times a week, but they have decreased since starting the medication. She also started seeing a therapist at [facility] around the same time. When informed of the recommendations for a behavioral health admission upon medical clearance, she shakes her head no and says she just wants to leave. Reviewed my concerns with discharging her at this time, and encouraged her to consider coming in voluntarily. Also reviewed the option of an involuntary 302 commitment, and she expressed understanding. She initially refused to allow contact with her boyfriend and friend, but ultimately agreed. She appeared nervous about what they would say, stating "I am not sure if they will tell you the same thing I said or not." Staff attempted to contact both her friend and boyfriend, but neither of the phone numbers or functioning. She had an uneventful night, was receiving IV fluids, and had episodes of sinus tachycardia. This morning, she was medically cleared. When the liaison nurse first met with her, she refused to answer questions, other than to say she did not want to be in the hospital anymore. She then spoke with her father over the phone, and when the liaison nurse returned, she was willing for voluntary admission. On my assessment, she was seen with Nayana Springer, MS4. She states that she is nervous about being here, wanting to know how long she might need to be in the hospital. She states her father called her and they spoke on the phone, but she did not know what to say to him. She is feeling a bit better physically, grogginess has resolved, but reports a headache. Mood is depressed and anxious , and she indicates that she had an argument with her boyfriend on the day of admission which worsened her mood acutely. We reviewed the treatment offered here, including a family meeting with her supports, and recommendations to increase her antidepressants, which she is agreeable to. 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 She also sees a nurse practitioner at [facility], but is in the process of transferring care to the [facility] psych clinic for long-term treatment. Hospital Course (1) Intentional overdose of drug in tablet form Still unknown what she overdosed on, initially reported as diphenhydramine, but bottle police brought in was missing only 2 pills. She thinks it was an OTC sleep medication from [employer]; likely an antihistamine. Q 15 min checks for safety. Encourage group attendance and participation. Work on health coping skills and discharge safety plan. Will recommend someone remove medications from her dorm room prior to discharge (has habitually over-used OTC sleep meds to sleep excessively when depressed). 07/06 -Reviewed the concept of the safety plan, and encouraged her to start working on it. -Recommend that father bring in medications from her dorm room so sleep meds can be disposed of. Recommended she not have access to large amounts of pills in order to decrease the risk of impulsive OD. 07/07 - Patient reports overdose of Benadryl. Should review plan for medication management with father as above. (2) Depression 07/05 - Increase sertraline to 50mg daily for today, and 75mg daily for tomorrow. Was on 50mg daily at home, with some improvement. Tolerating well. -Records from [facility] reviewed. Coordinate care and ensure timely aftercare - is to transition to Psychological Clinic at some point for intermediate treatment. -Facilitate contact with the University, as she states she is performing poorly in school. 07/06 - sertraline increased to 75mg daily. Family meeting with father today. -Coordinate with [facility] to ensure adequate f/u - will need med management while transitioning to [facility], as no psychiatric appointment scheduled there yet and she has to complete testing and intake first. 07/07 - Continue sertraline 75mg daily - [facility] follow up in interim for management by [facility]. - Call patient's father to discuss discharge planning in regard to available times for pickup as patient should be discharged to his care. (3) Anxiety Symptoms of AMERICA, panic and social anxiety. Increase SSRI as above, and continue therapy. (4) Borderline Personality Traits Per therapist, has some borderline traits. Will continue to educate and encourage ongoing OP therapy. 07/06 - Would likely benefit form both CBT and DBT modalities. Risk Factors Assessment : No /single/: Yes Higher / Fall in social status: No Health problems: Yes Mental Health Diagnoses: Yes Substance use disorders: No Previous attempt: No Family history of suicide: No Previous psychiatric stay: Yes Hopelessness: No Smoker: No Protective Factors Assessment Christian beliefs: No : No Responsible for young children: No Employed: No Stable relationships: Yes Supportive family: Yes Good rapport with provider: Yes Day of Discharge Assessment COURSE OF HOSPITALIZATION - Pt was admitted to [address] [place] [address] following a stay on the medical floor for a Benadryl overdose. Pt reports this as a suicide attempt, due to being upset. Pt's dose of sertraline was increased to 75mg and she feels this has been beneficial for improving her mood. Pt has declined further increase in dose as she feels her mood is "normal" again. Pt was willing to engage her father in a family session via phone, and communicated with her boyfriend and best friend via phone. Pt has reported resolution of SI during her stay. She has participated in both group and recreational therapy and as worked on safety planning and improving communication with her father. Pt is anticipating discharge home with her father today. DAY OF DISCHARGE ASSESSMENT - Pt's case was discussed today during treatment team. Staff reports patient denies SI. They confirm dorms close on Tuesday and patient should be able to retrieve belongings from her dorm prior to going home for spring. Will plan to have patient see PCP for follow up on Left thigh numbness. Percocet and Benadryl to be destroyed at discharge. Pt was seen today to assess readiness for discharge. Pt reports improvement in mood and is much more responsive in regard to her affect. She is smiling frequently. Pt's father is reportedly available to take her home after 5:00pm this evening. Pt continues to deny SI while on the unit and is feeling more hopeful. She reports feeling comfortable with aftercare and safety plan. Based on review of the patient's records and presentation at this encounter, the patient appears appropriate for discharge today. Transition of care record was reviewed with the patient prior to discharge. We discussed recommendation to continue discharge medications as prescribed until recommended to stop by another prescriber. The patient presented as alert and cooperative. The patient was casually dressed in t-shirt and scrub pants. Eye contact was good. No psychomotor restlessness or agitation was noted. Speech was normal in rate, rhythm, and volume. Affect was mood congruent. The patients mood appeared less dulled. Thought processes were clear, coherent and goal directed without evidence of loose associations or flight of ideas. Thought content/perception was reality based without delusions. The patient denied suicidal and homicidal ideation. The patient denied hallucinations and did not appear to be responding to internal stimuli. Cognition was grossly intact with orientation to person, place and time. Fund of Knowledge/Intelligence were consistent with level of education. Insight and Judgement were fair. Laboratory Refer to printed laboratory reports Total Time Total Time Spent (min): Greater than 30 minutes Total Time Included: examination of the patient, discharge planning, medication reconciliation, communication with other providers Tobacco Cessation at Discharge Smoking Status: Never Smoker FDA approved Prescription: non-smoker Problem Qualifiers (1) Depression: Depression Type: major depressive disorder Major depression recurrence: recurrent Major depression episode severity: severe Psychotic features: without psychotic features
[2017-07-08] MEDS ORDERED: DESTROY THIS MEDICATION ONE (14:00)
[2017-07-08 15:50] VITALS: BP 114/71; PULSE 81
[2017-07-09 07:00] VITALS: BP_SYST 108; BP_SYST 113; BP_DIAS 73; BP_DIAS 82; PULSE 91; PULSE 92; TEMP 36.7
[2017-07-09] MEDS: SERTRALINE HCL 50 MG TAB PO SCH (08:24)
--- NOTE | 2017-07-09 09:17 | Psychiatric Progress Notes ---
Psychiatric Progress Note Date of Service Jul 09, 2017. Notes Pt seen and assessed in company of Kalpana Reynolds PA-C and pt's father with her permission for discharge assessment. Pt rates mood as 6/10 today, denies residual suicidal ideation or anxiety, and states readiness for discharge. She will be staying in company of family for spring and is being transported to home by father today. She is looking forward to seeing her friends at home and appears forward looking. Questions from pt and father were answered. Reviewed after care in place. I directly participated in medical decision making associated with discharge planning.
== END 2017-07-09 10:05 | disposition home or self-care (01) | DRG 885 ==
LOC: C.MHU 10:58
PROVIDERS: ADMIT Psychiatry & Neurology Psychiatry; ATTEND Psychiatry & Neurology Psychiatry
DX: F33.2 Major depressive disorder, recurrent severe without psychotic features (principal); R45.851 Suicidal ideations; F41.1 Generalized anxiety disorder; Z79.899 Other long term (current) drug therapy